=== PATIENT | female | born 1945 | race Caucasian/White ===

== ENCOUNTER 2022-05-16 14:27 | Outpatient (CLI) | payer MEDICARE, OTHER, SELFPAY ==
--- NOTE | ~2022-05-16 | XR_ITS ---
EXAMINATION: XR lumbar spine 2-3V DATE: 05/16/2022 15:21 INDICATION: Chronic low back pain. TECHNIQUE: 3 views of lumbar spine were obtained. COMPARISON: None. FINDINGS: There is 4 degrees levocurvature of lumbar spine. Vertebral body heights are normal. There is mild decreased disc height at L2-L3 and L3-L4. There are endplate osteophytes at most levels. Ther e is multilevel moderate facet joint osteoarthritis. IMPRESSION: 1. Mild lumbar spondylosis. Reviewed, dictated and finalized at location B. IMPRESSION: 1. Mild lumbar spondylosis.
--- NOTE | ~2022-05-16 | XR_ITS ---
EXAMINATION: XR thoracic spine 3V DATE: 05/16/2022 15:21 INDICATION: Back pain. TECHNIQUE: 3 views of thoracic spine were obtained. COMPARISON: Chest CT 05/19/2017 FINDINGS: Bone alignment is normal. Vertebral body heights are normal. There is mildly decreased disc height at multiple levels. There are endplate osteophytes at many levels. There is a 3 cm mass in le ft lung upper lobe. IMPRESSION: 1. 3 cm mass in left lung upper lobe suspicious for primary bronchogenic carcinoma. Noncontrast chest CT is recommended. 2. Mild thoracic spondylosis. Reviewed, dictated and finalized at location B. IMPRESSION: 1. 3 cm mass in left lung upper lobe suspicious for primary bronchogenic carcin everardo. Noncontrast chest CT is recommended. 2. Mild thoracic spondylosis.
--- NOTE | ~2022-05-16 | XR_ITS ---
EXAMINATION: XR chest 2V DATE: 05/16/2022 15:21 INDICATION: Chronic obstructive pulmonary disease. TECHNIQUE: Frontal and lateral views of the chest were obtained. COMPARISON: Chest 2 views 08/12/2014, chest CT 05/19/2017 FINDINGS: There are lucencies in the lungs, consistent with emphysema. There is a 3 cm mass in left u pper lobe. Calcified pulmonary nodules and calcified hilar and mediastinal lymph nodes are consistent with old granulomatous disease. No pleural effusion or pneumothorax. The heart size is normal. There are old healed right rib fractures. IMPRESSION: 1. 3 cm mass in left lung upper lobe suspicious for primary bronchogenic carcinoma. Noncontrast chest CT is recommended. I called this result to Dr. Bashri. Reviewed, dictated and finalized at location B. IMPRESSION: 1. 3 cm mass in left lung upper lobe suspicious for primary bronchogenic carcin everardo. Noncontrast chest CT is recommended. I called this result to Dr. Bashir .
--- NOTE | 2022-05-16 15:22 | ECG_ITS ---
Measurements Intervals [place] Rate: 60 P: 54 MN: 160 QRS: -24 QRSD: 71 T: 57 QT: 440 QTc: 442 Interpretive Statements BASELINE ARTIFACT/POOR QUALITY ECG SINUS RHYTHM ANTEROSEPTAL MYOCARDIAL INFARCTION , O OLD ABNORMAL ECG Electronically Signed On 05-17-2022 14:47:45 CDT by Chito Viveros M.D.
== END 2022-05-16 14:28 | disposition home or self-care (01) ==
LOC: CHSCARD 14:31
PROVIDERS: PCP Family Medicine; Visit Provider Family Medicine
DX: R60.0 Localized edema (principal); M40.15 Other secondary kyphosis, thoracolumbar region; J44.9 Chronic obstructive pulmonary disease, unspecified; M54.50 Low back pain, unspecified; M54.6 Pain in thoracic spine; I10 Essential (primary) hypertension
CPT/HCPCS: 71046; 72072; 72100; 93005

== ENCOUNTER 2022-05-17 10:37 | Outpatient (CLI) | payer MEDICARE, OTHER, SELFPAY ==
--- NOTE | ~2022-05-17 | CT_ITS ---
EXAMINATION:CT diagnostic chest wo con DATE: 05/17/2022 11:17 INDICATION: Mass in lung. TECHNIQUE: Computed tomography (CT) of the chest was performed without intravenous contrast. Automate d exposure control and iterative reconstruction technique were employed. The dose-length product (DLP ) was 143.02 mGy-cm. COMPARISON: Chest 2 views 05/16/2022, chest CT 05/19/2017, CT abdomen 07/23/16 FINDINGS: There is severe emphysema. Calcified pulmonary nodules and calcified hilar and mediastinal lymph nodes are consistent with old granulomatous disease. There is a cluster of centrilobular nodule s in right upper lobe. There is a 7 mm nodule in right upper lobe. There is a 10 mm part solid nodule in superior segment left lower lobe. There is an 8 mm nodule in left upper lobe. There is a 17 mm no dule in left upper lobe. No pleural effusion. The heart size is normal. There are coronary artery johnny cifications. No pericardial effusion. Calcifications in the spleen are consistent with old granulomat ous disease. There is diffuse hepatic steatosis. Partially visualized is a 6.1 cm mass with calcifica tions and small area of fat in right adrenal gland that measured 4.5 cm on 07/23/2016, consistent with a myelolipoma. There are old healed right rib fractures. There is mild thoracic spondylosis. There i s mild chronic height loss of C7 and T3 vertebral bodies. IMPRESSION: 1. 17 mm pulmonary nodule in left lung upper lobe, consistent with primary bronchogenic carcinoma. 2. Multiple other pulmonary nodules measuring up to 10 mm, which are indeterminate for malignancy. Co nsider PET/CT. 3. Severe emphysema. Reviewed, dictated and finalized at location B. IMPRESSION: 1. 17 mm pulmonary nodule in left lung upper lobe, consistent with primary bron chogenic carcinoma. 2. Multiple other pulmonary nodules measuring up to 10 mm, which are indetermin ate for malignancy. Consider PET/CT. 3. Severe emphysema.
== END 2022-05-17 10:38 | disposition home or self-care (01) ==
LOC: CHSIMG 10:39
PROVIDERS: PCP Family Medicine; Visit Provider Family Medicine
DX: R91.8 Other nonspecific abnormal finding of lung field (principal)
CPT/HCPCS: 71250

== ENCOUNTER 2022-05-21 12:58 | Outpatient (CLI) | payer MEDICARE, OTHER, SELFPAY ==
--- NOTE | ~2022-05-21 | DEXA_ITS ---
Bone Density Report Name: JUNG PACKER Age: 76 Sex: Female Ethnicity: White Date of : 1945 Indication: postmenopausal; screening for osteoporosis; height loss; asthma or emphysema; Referring Provider: Domingo Bashir Study: Bone densitometry was performed. Exam Date: May 21, 2022 Accession number: [id number] Bone Density: Region BMD T-score Z-score Classification AP Spine(L1-L4) 1.125 0.7 3.3 Normal Femoral Neck (Left) 0.848 0.0 2.2 Normal Total Hip (Left) 0.983 0.3 2.3 Normal Femoral Neck (Right) 0.822 -0.2 2.0 Normal Total Hip (Right) 0.957 0.1 2.1 Normal Femoral Neck Mean 0.835 -0.1 2.1 Normal Total Hip Mean 0.970 0.2 2.2 Normal World Health Organization criteria for BMD impression classify patients as: Normal (T-score at or above -1.0), Osteopenia (T-score between -1.0 and -2.5), or Osteoporosis (T-score at or below -2.5). 10-year Fracture Risk: FRAX not reported because: All T-scores for Spine Total, Hip Total, Femoral Neck at or above -1.0 Clinical Information Provided by Patient: Has used the following medications: Vitamin D Has the following medical conditions: Asthma or Emphysema Patient maximum height was 59 Menopause Age: 50 No regular weight bearing exercise Drinks caffeinated beverages Onset of menses at age 10 Number of children 3 Impression: The patient has normal bone mass. Discussion: BONE DENSITY IS ABOVE THE MINIMUM DESIRABLE LEVEL AT ALL SKELETAL SITES TESTED. This patient?s bone mineral density is above the minimum desirable level (T-score -1.0 or better) at all sites measured. The patient should follow a healthful lifestyle (good nutrition with adequate calcium and vitamin D, and appropriate weight-bearing exercise). Follow-Up: Consider repeating this study in 5 years or sooner if there is some new clinical indication. Reported by: Dr. Jose Mittal on 05/21/2022 1:43:00 PM. Reviewed, dictated and finalized at location [facility]
--- NOTE | ~2022-05-21 | US_ITS ---
EXAMINATION: US venous doppler [facility] DATE: 05/21/2022 14:39 INDICATION: Lower limb edema. TECHNIQUE: Grayscale ultrasound images without and with compression and Doppler ultrasound images of the bilateral lower extremity veins were obtained. COMPARISON: None. FINDINGS: The visualized portions of right common femoral vein, profunda (deep) femoral vein, femoral vein, pop liteal vein, peroneal veins, posterior tibial veins, and greater saphenous vein outflow are patent. The visualized portions of left common femoral vein, profunda femoral vein, femoral vein, popliteal v ein, peroneal veins, posterior tibial veins, and greater saphenous vein outflow are patent. IMPRESSION: 1. No deep venous thrombosis. Reviewed, dictated and finalized at location A.
== END 2022-05-21 12:59 | disposition home or self-care (01) ==
LOC: CHSIMG 13:04
PROVIDERS: PCP Family Medicine; Visit Provider Family Medicine
DX: R60.0 Localized edema (principal); M40.15 Other secondary kyphosis, thoracolumbar region; J44.9 Chronic obstructive pulmonary disease, unspecified; M54.50 Low back pain, unspecified; Z78.0 Asymptomatic menopausal state
CPT/HCPCS: 77080; 93970

== ENCOUNTER 2022-05-22 13:25 | Outpatient (CLI) | payer MEDICARE, OTHER, SELFPAY ==
[2022-05-22 13:40] VITALS: PULSE 62; O2SAT 91
[2022-05-22 13:44] VITALS: PULSE 71; O2SAT 87
[2022-05-22 13:46] VITALS: PULSE 78; O2SAT 93
--- NOTE | 2022-05-22 13:56 | HOMEO2EVAL ---
Evaluation was performed at [facility] Home Oxygen Evaluation RC: Home Oxygen (O2) Evaluation Start: 05/22/22 13:49 Freq: Status: Active Protocol: RPE Activity Type Activity Date Activity User E-sign Co-sign Detail Recorded Client Recorded Date Recorded By Document 05/22/22 13:40 JUSTIN [id number] 05/22/22 13:56 KAB Document 05/22/22 13:44 KAB [id number] 05/22/22 13:56 KAB Document 05/22/22 13:46 KAB [id number] 05/22/22 13:56 KAB 05/22/22 05/22/22 05/22/22 13:40 13:44 13:46 Home O2 Evaluation Test Phase Resting Exercise Exercise Oxygen Delivery Room Air Room Air Nasal Cannula Oxygen Flow Rate (L/min) 1 Pulse Oximetry (90-100 %) 91 87 L 93 Pulse Rate (60-100 beats/min) 62 71 78 Activity Tolerance Good Good Rate of Perceived Exertion (PE) 11 Fairly light 12 Ambulation Distance (feet) 176 280 Ambulation Distance (meters) 53.64 85.33 Home Oxygen Evaluation Comments Will begin walk walked about pt walked on RA pushing 176 feet on ra. approx 280 feet wheelchair Spo2 dropped . spo2 to 87. Placed remained 92% pt on o2 @1LPM. and above on 1 liter of o2. Heart rate 78. Tolerated well. plb encouraged . Treatment Charges O2 Evaluation - Outpatient
== END 2022-05-22 13:26 | disposition home or self-care (01) ==
LOC: CHSCARD 13:28
PROVIDERS: PCP Family Medicine; Visit Provider Family Medicine
DX: J43.9 Emphysema, unspecified (principal)
CPT/HCPCS: 94618

== ENCOUNTER 2022-06-20 12:03 | Outpatient (CLI) | payer MEDICARE, OTHER, SELFPAY ==
--- NOTE | ~2022-06-20 | PE_ITS ---
EXAMINATION: PET skull to mid thigh DATE: 06/20/2022 14:02 INDICATION: Other nonspecific abnormal finding of lung field. Lung nodule. TECHNIQUE: Blood glucose level was 125 mg/dL. 10.623 mCi of 18-fluorodeoxyglucose (18-FDG) was admini stered i.v. Low dose computed tomography (CT) images were acquired from the base of the brain to the proximal thighs for attenuation correction and anatomic localization. Automated exposure control was employed. Dose-length product (DLP) was 750 mGy-cm. Positron emission tomography (PET) images were ac quired in the same distribution. COMPARISON: Chest CT 05/17/2022, 05/19/17 FINDINGS: Head/neck: There is increased activity in the glottis without abnormal CT correlate, likely physiolog ic. There are no pathologically enlarged lymph nodes. Chest: There is severe emphysema. Calcified pulmonary nodules and calcified hilar and mediastinal lym ph nodes are consistent with old granulomatous disease. There is a 5 mm nodule in right upper lobe wi thout increased activity. There is a 7 mm part solid nodule in superior segment left lower lobe witho ut increased activity. There are groundglass and airspace opacities in posterior segment left upper l obe with maximum SUV of 1.1. No pleural effusion. The heart size is normal. There are coronary artery calcifications. No pericardial effusion. There are old healed right rib fractures. Abdomen/pelvis/proximal thighs: There is diffuse hepatic steatosis. There are gallstones in the gallb ladder, which is normal in size. Calcifications in the spleen are consistent with old granulomatous d isease. The pancreas and left adrenal gland are normal. There is a 6.0 cm mass in right adrenal gland measuring soft tissue attenuation with calcifications with maximum SUV of 2.9. Calcifications of pantera ateral kidneys are likely vascular. There is a calcified fibroid in the uterus. There is diverticulos is of the colon without evidence of diverticulitis. There are no dilated loops of bowel. The appendix is normal. There are no pathologically enlarged lymph nodes. There is no free intraperitoneal fluid. IMPRESSION: 1. Improved lung findings, probably infection. Noncontrast low-dose chest CT is recommended in 6 [facility] hs. 2. 6.0 cm mass in right adrenal gland with maximum SUV of 2.9 with increase in size from 5.2 cm on , most likely benign. Reviewed, dictated and finalized at location A. IMPRESSION: 1. Improved lung findings, probably infection. Noncontrast low-dose chest CT is recommended in 6 months. 2. 6.0 cm mass in right adrenal gland with maximum SUV of 2.9 with increase in size from 5.2 cm on 07/23/2016, most likely benign.
[2022-06-20 12:33] LABS: Glucose Point of Care 125 mg/dl (65-105)
== END 2022-06-20 12:04 | disposition home or self-care (01) ==
PROVIDERS: PCP Family Medicine; Visit Provider Nurse Practitioner Family
DX: R91.8 Other nonspecific abnormal finding of lung field (principal)
CPT/HCPCS: 78815; A9552

== ENCOUNTER 2022-12-10 12:40 | Outpatient (CLI) | payer MEDICARE, OTHER, SELFPAY ==
--- NOTE | ~2022-12-10 | CT_ITS ---
EXAMINATION:CT diagnostic chest wo con DATE: 12/10/2022 13:00 INDICATION: Lung nodule. TECHNIQUE: Computed tomography (CT) of the chest was performed without intravenous contrast. Automate d exposure control and iterative reconstruction technique were employed. The dose-length product (DLP ) was 131.61 mGy-cm. COMPARISON: Chest CT 05/17/2022, PET/CT 06/20/2022 FINDINGS: There is severe emphysema. Calcified pulmonary nodules and calcified hilar and mediastinal lymph nodes are consistent with old granulomatous disease. Again seen is a cluster of nodules in righ t upper lobe measuring up to 4 mm. Again seen is a 3 mm nodule in right lower lobe. Again seen is a 4 mm nodule in right lower lobe. No pleural effusion. The heart size is normal. There are coronary art keyla calcifications. No pericardial effusion. There is a 6.0 x 4.8 cm mass with calcifications in righ t adrenal gland, increased from 4.9 x 4.4 cm on 07/23/16. There are old healed right rib fractures. Th ere are chronic compression fractures of C7 and T3. IMPRESSION: 1. Interval resolution of the left upper lobe pulmonary nodule. Stable small residual pulmonary nodul es are likely benign. 2. 6.0 x 4.8 cm mass in right adrenal gland, increased from 4.9 x 4.4 cm on 07/23/16. The slow change suggests this finding is most likely benign. 3. Severe emphysema. Reviewed, dictated and finalized at location A. NSTRUCTIVE DENTIST IMPRESSION: 1. Interval resolution of the left upper lobe pulmonary nodule. Stable small re sidual pulmonary nodules are likely benign. 2. 6.0 x 4.8 cm mass in right adrenal gland, increased from 4.9 x 4.4 cm on 07/02 02/13. The slow change suggests this finding is most likely benign. 3. Severe emphysema.
== END 2022-12-10 12:41 | disposition home or self-care (01) ==
LOC: CHSIMG 12:42
PROVIDERS: PCP Family Medicine; Visit Provider Nurse Practitioner Family
DX: R91.8 Other nonspecific abnormal finding of lung field (principal); E27.9 Disorder of adrenal gland, unspecified; J43.9 Emphysema, unspecified
CPT/HCPCS: 71250

== ENCOUNTER 2023-12-10 14:23 | Outpatient (CLI) | payer MEDICARE, OTHER, SELFPAY ==
--- NOTE | ~2023-12-10 | XR_ITS ---
EXAM: XR lumbar spine 2-3V DATE: 12/10/2023 14:56 HISTORY: low back pain FOR A LONG TIME/NO TRAUMA . COMPARISON: 05/16/2022. FINDINGS: Mild lumbar scoliosis. 5 nonrib-bearing lumbar-type vertebral bodies. Pedicles intact. Nor mal vertebral body alignment. Vertebral body heights preserved. Multilevel mild disc space narrowing and moderate marginal osteophytosis. Multilevel moderate facet hypertrophy and sclerosis. Extensive a therosclerotic calcification of the aorta, with aneurysmal dilatation up to 3.5 cm. No fracture or di slocation. IMPRESSION: Osteopenia. Multilevel moderate degenerative disc disease and facet arthropathy. 3.5 cm a bdominal aortic aneurysm, recommend ultrasound of the aorta for further evaluation. Reviewed, dictated and finalized at location K. T CLIPPER IMPRESSION: Osteopenia. Multilevel moderate degenerative disc disease and facet arthropathy. 3.5 cm abdominal aortic aneurysm, recommend ultrasound of the aor ta for further evaluation.
== END 2023-12-10 14:24 | disposition home or self-care (01) ==
LOC: CHSIMG 14:27
PROVIDERS: PCP Family Medicine; Visit Provider Family Medicine
DX: M54.50 Low back pain, unspecified (principal); M85.88 Other specified disorders of bone density and structure, other site; M51.36 Other intervertebral disc degeneration, lumbar region; I71.40 Abdominal aortic aneurysm, without rupture, unspecified
CPT/HCPCS: 72100

== ENCOUNTER 2023-12-17 10:25 | Outpatient (CLI) | payer MEDICARE, OTHER, SELFPAY ==
--- NOTE | ~2023-12-17 | US_ITS ---
EXAMINATION: US aorta DATE: 12/17/2023 11:19 INDICATION: Enlarged aorta. TECHNIQUE: Grayscale, color Doppler, and pulsed Doppler images of the aorta and common iliac arteries were obtained. COMPARISON: Ultrasound 07/12/2016, PET CT 06/20/2022 FINDINGS: The aorta is normal in caliber and demonstrates atherosclerosis.. The common iliac arteries are not w ell visualized. IMPRESSION: 1. No abdominal aortic aneurysm. Reviewed, dictated and finalized at location E. MANAGER
== END 2023-12-17 10:26 | disposition home or self-care (01) ==
PROVIDERS: PCP Family Medicine; Visit Provider Family Medicine
DX: I77.810 Thoracic aortic ectasia (principal)
CPT/HCPCS: 76775

== ENCOUNTER 2023-12-18 10:35 | Outpatient (CLI) | payer MEDICARE, OTHER, SELFPAY ==
--- NOTE | ~2023-12-18 | MR_ITS ---
EXAMINATION: MR lumbar spine wo con DATE: 12/18/2023 12:11 INDICATION: Low back pain. TECHNIQUE: Magnetic resonance imaging (MRI) of the lumbar spine was performed without intravenous con trast. Sequences included sagittal T2-weighted FSE, sagittal T2-weighted FS FSE, sagittal T1-weighted FSE, and axial T2-weighted FSE. COMPARISON: Lumbar spine radiographs 12/10/23, chest CT 12/18/23, PET/CT 06/20/22 FINDINGS: There is 4 degrees levocurvature of lumbar spine. There is mild chronic anterior wedging of L1 vertebral body. There are Schmorl's nodes at multiple levels. There is moderately decreased disc height at L2-L3 and mildly decreased disc height at L3-L4. The distal spinal cord signal intensity is normal. The conus medullaris is at T12-L1. There is a 7.4 cm mass of right adrenal gland that contai ns macroscopic fat by CT, consistent with a myelolipoma. The following disc levels are specifically d iscussed: L1-L2: The disc is bulging. There is severe bilateral facet joint osteoarthritis. There is mild bilat eral neural foraminal stenosis. There is mild central canal stenosis. L2-L3: The disc is bulging. There is severe bilateral facet joint osteoarthritis. There is mild bilat eral neural foraminal stenosis. There is mild central canal stenosis. L3-L4: The disc is bulging. There is severe bilateral facet joint osteoarthritis. There is mild bilat eral neural foraminal stenosis. There is mild central canal stenosis. L4-L5: The disc is bulging. There is severe bilateral facet joint osteoarthritis. There is mild bilat eral neural foraminal stenosis. There is mild central canal stenosis. L5-S1: The disc does not extend beyond the endplate margin. There is severe bilateral facet joint ost eoarthritis. There is no neural foraminal stenosis. There is no central canal stenosis. IMPRESSION: 1. Moderate lumbar spondylosis. 2. 7.4 cm right adrenal myelolipoma. Reviewed, dictated and finalized at location E. ER CHAIN OFFBEARER
--- NOTE | ~2023-12-18 | CT_ITS ---
EXAMINATION:CT diagnostic chest wo con DATE: 12/18/2023 12:11 INDICATION: Lung nodules. TECHNIQUE: Computed tomography (CT) of the chest was performed without intravenous contrast. Automate d exposure control and iterative reconstruction technique were employed. The dose-length product (DLP ) was 231.56 mGy-cm. COMPARISON: Chest CT 12/10/2022, 05/17/2022 FINDINGS: There is severe emphysema. There is mild atelectasis bilaterally. Calcified pulmonary nodul es and calcified hilar and mediastinal lymph nodes are consistent with old granulomatous disease. The re are a few chronic nodules in the lungs measuring up to 4 mm, likely benign. No pleural effusion. T here is calcified atherosclerosis of the aorta and many of the other arteries. The heart size is norm al. No pericardial effusion. There are coronary artery calcifications. Calcifications in the liver an d spleen are consistent with old granulomatous disease. There is a 7.2 cm mass in right adrenal gland containing macroscopic fat, consistent with a myelolipoma. There is mild thoracic spondylosis. There is mild chronic anterior wedging of multiple vertebral bodies. IMPRESSION: 1. Chronic small pulmonary nodules, likely benign. 2. Severe emphysema. Reviewed, dictated and finalized at location E. EYOR HELPER ROD
== END 2023-12-18 10:36 | disposition home or self-care (01) ==
LOC: CHSIMG 10:36
PROVIDERS: PCP Family Medicine; Visit Provider Family Medicine
DX: R91.8 Other nonspecific abnormal finding of lung field (principal); M54.50 Low back pain, unspecified; J43.9 Emphysema, unspecified; M43.06 Spondylolysis, lumbar region; D17.79 Benign lipomatous neoplasm of other sites
CPT/HCPCS: 71250; 72148

== ENCOUNTER 2024-02-12 14:26 | Outpatient (CLI) | payer MEDICARE, OTHER, SELFPAY ==
--- NOTE | ~2024-02-12 | XR_ITS ---
XR lumbar spine 2-3V 02/12/2024 15:29 Indication: Low back pain Procedure: 3 views lumbar spine Comparison: 12/10/2023 Findings: There is mild levocurvature of the thoracolumbar spine. There is disc narrowing at L1-2 thr ough L4-5. There is multilevel facet hypertrophy. No acute fracture or traumatic malalignment. There is atherosclerosis and aneurysmal dilatation of the aorta measuring up to 3.3 cm. No acute fracture o r traumatic malalignment. There are coarse amorphous calcifications in the pelvis, likely uterine fib roids. There is renal artery atherosclerosis. Impression: 1: Severe lumbar spondylosis with levoscoliosis. 2: Abdominal aortic aneurysm measuring 3.3 cm. Reviewed, dictated and finalized at location A. Impression: 1: Severe lumbar spondylosis with levoscoliosis. 2: Abdominal aortic aneurysm measuring 3.3 cm.
== END 2024-02-12 14:27 | disposition home or self-care (01) ==
LOC: CHSIMG 14:29
PROVIDERS: PCP Family Medicine; Visit Provider Family Medicine
DX: M54.50 Low back pain, unspecified (principal); M43.06 Spondylolysis, lumbar region; M41.86 Other forms of scoliosis, lumbar region; I71.40 Abdominal aortic aneurysm, without rupture, unspecified
CPT/HCPCS: 72100

== ENCOUNTER 2024-03-04 14:43 | Outpatient (RCR) | payer MEDICARE, OTHER, SELFPAY ==
--- NOTE | 2024-03-04 15:55 | OPREHPOC ---
Outpatient Therapy Plan of Care This is a Multidisciplinary Plan of Care that may contain components documented by all disciplines (PT, OT, and ST.) PT Problem 1 PT Problem #1 Knowledge Deficit PT Goal 1 Goal 1. independent and compliant with HEP Target Visit 4 PT Problem 2 PT Problem #2 Pain PT Goal 1 Goal 1. patient to report pain at worst no more than 6/ 10 in the lower back Target Visit 8 PT Problem 3 PT Problem #3 Impaired Strength PT Goal 1 Goal 1. improve core strength to 3+/5 or better 2. improve bilateral hip strength to 4+/5 or better Target Visit 8 PT Problem 4 PT Problem #4 Impaired Functional Mobil PT Goal 1 Goal 1. tinetti to display moderate fall risk or less 2. patient to ambulate 6 minutes with WW and no sitting rest 3. oswestry to display less than 50% functional deficits 4. patient to perform standing activities at home for 15 minutes without sitting rest or increased lower back pain Target Visit 8
--- NOTE | 2024-03-04 15:55 | PTOPEVAL1 ---
Assessment and note entered by JT File, PT Evaluation Information Assessment Status Evaluation Diagnosis low back pain Onset 02/27/24 Subjective Information patient reports she has had pain in the lower back for a long time. she reports she has a lot of pain down the L LE from the lower back. she reports she has increased pain and symptoms with standing and walking. she reports she feels best when sitting and laying down. she reports her xrays showed arthritis in the lower and upper back , and 4 bulging discs in her lower back. she reports she does tolerate standing or walking much due to her respiratory issues (2L supplemental O2 all the time) and due to her lower back issues. she reports she has never done PT in the past. she reports she was given narcotics for her pain which she is currently taking. she reports they do help. patient reports she would like to get rid of her pain. Reported Pain Level Pain Score 0: Self Report Assessment PT Clinical Summary mrs. burks is a pleasant 78 yo woman who presents to skilled PT services for evaluation and treatment of lower back pain. she displays weakness of the core, weakness hips, decreased lumbar mobility, poor posture, and poor activity tolerance. she is complicated by COPD and poor endurance as she is on 2L of supplemental O2. she would benefit from continued skilled PT to address her objective/functional deficits to improve her quality of life and functional activity performance. Plan of Care Interventions Electrical Stimulation,Gait Training,Hot Pack/Cold Pack,Manual Therapy,Neuro Re-education,Patient/ Caregiver Educati,Therapeutic Activities, Therapeutic Exercise PT Services Indicated Yes Treatment Frequency and 2x weekly for 8 visits Duration These treatments will address the objective and functional deficits as defined above. The patient will be advanced safely and appropriately in order for the patient to progress towards his/her prior level of function. Additional exercises will be introduced and as well as a comprehensive home exercise program upon discharge, if needed, ?to ensure carryover of functional gains achieved in the clinic. This treatment plan has been reviewed and agreement upon by the patient.
--- NOTE | 2024-03-10 09:34 | PCPTNOTE ---
patient called and cancelled therapy on 03/09/24 for an unknown reason.
--- NOTE | 2024-03-18 15:09 | PCPTNOTE ---
Patient cancelled session. She reports her spasms are too bad today.
--- NOTE | 2024-03-24 17:38 | PCPTNOTE ---
patient called yesterday and reports she does not feel therapy is helping. she reports she would like to be DC'd.
== END 2024-03-16 20:00 | disposition home or self-care (01) ==
LOC: CHSPT 14:43
PROVIDERS: PCP Family Medicine; Visit Provider Family Medicine
DX: M54.50 Low back pain, unspecified (principal)
CPT/HCPCS: 97014; 97110; 97140; 97161; G0283

== ENCOUNTER 2024-03-23 14:04 | Emergency (ER) | payer MEDICARE, OTHER, SELFPAY ==
--- NOTE | ~2024-03-23 | XR_ITS ---
XR ankle LT min 3V, XR foot LT 2V 03/23/2024 14:29 Indication: Left ankle and foot pain after trauma Procedure: 4 views left ankle and 3 views left Comparison: No prior studies for comparison. Findings: There are extra-articular fractures of the fourth and fifth proximal phalanges with lateral angulation. Osteopenia. Lisfranc joint intact. Ankle mortise intact. No other fracture. No foreign b odies. Impression: 1: Extra-articular fracture is left fourth and fifth proximal phalanges with lateral angulation. Reviewed, dictated and finalized at location B. Impression: 1: Extra-articular fracture is left fourth and fifth proximal phalanges with la teral angulation. Impression: 1: Extra-articular fracture is left fourth and fifth proximal phalanges with la teral angulation.
[2024-03-23 14:04] VITALS: BP 154/69; PULSE 68; RESP 18; TEMP 37.1; O2SAT 98
[2024-03-23 14:12] VITALS: BP 154/69; PULSE 68; RESP 18; TEMP 37.1; O2SAT 98
--- NOTE | 2024-03-23 14:13 | ED.LOWEXIN ---
HPI - Extremity Injury (Lower) General Chief Complaint: Extremity Injury, Lower Stated Complaint: L FOOT INJURY Time Seen by Provider: 03/23/24 14:12 Source: patient Mode of arrival: ambulatory Limitations: no limitations History of Present Illness HPI Narrative: 78 year old female presents to the Emergency Department complaining of left foot and ankle injury and pain. Patient states she fell last evening. Denies any other injury. Patient has deformity to left 4th toe, which is new. Her primary pain is at 4th toe, but also has some pains in foot and ankle. Denies numbness or tingling. MD complaint: ankle injury and foot injury Onset (ago): day(s) (last night) Injury: Left: ankle, foot and toes Place: home Severity: moderate Exacerbating factors: weight bearing, movement and palpation Context: fall Related Data Home Medications Medication Instructions Recorded Confirmed albuterol sulfate 90 mcg/actuation 1 puff inhalation Q4H PRN Wheezing 06/12/22 03/23/24 aerosol inhaler aspirin 81 mg chewable tablet 81 mg PO DAILY 06/12/22 03/23/24 cholecalciferol (vitamin D3) 50 50 mcg PO DAILY 06/12/22 03/23/24 mcg (2,000 unit) capsule escitalopram oxalate 10 mg tablet 10 mg PO DAILY 06/12/22 03/23/24 famotidine 40 mg tablet 40 mg PO BID 06/12/22 03/23/24 montelukast 10 mg tablet 10 mg PO QHS 06/12/22 03/23/24 rosuvastatin 5 mg tablet 5 mg PO DAILY 06/12/22 03/23/24 metoprolol tartrate 25 mg tablet 50 mg PO BID 06/13/23 03/23/24 amlodipine 10 mg tablet 10 mg PO DAILY 01/09/24 03/23/24 fluticasone fur. 200 mcg-umeclid 1 inh inhalation DAILY 03/23/24 03/23/24 62.5 mcg-vilant 25 mcg inhalat.powder (Trelegy Ellipta) Allergies Allergy/AdvReac Type Severity Reaction Status Date / Time No Known Allergies Allergy Unverified 03/23/24 14:09 Review of Systems Review of Systems: All systems reviewed & are unremarkable except as noted in HPI and below Constitutional: Constitutional: Reports as per HPI Eyes: Eyes: Reports as per HPI ENT: Reports system reviewed and no additional complaints, except as documented Cardiovascular: Cardiovascular: Reports as per HPI Respiratory: Respiratory: Reports as per HPI Gastrointestinal: Gastrointestinal: Reports as per HPI Genitourinary: Genitourinary: Reports no additional female genitourinary complaints Musculoskeletal: Musculoskeletal: Reports no additional musculoskeletal complaints and Reports arthralgias (left 4th toe) Neurologic: Reports system reviewed and no additional complaints, except as documented and Denies numbness PMFSH Past Medical History Medical History Cataract removal 2020 CVA (cerebral vascular accident) Former smoker HTN (hypertension) Hyperlipidemia Proteinuria Surgical History Surgical History H/O tubal ligation Social History Social History Smoking packs per day: 1 Smoking cigarettes per day: 20.0 Years smoked: 50 Smoking pack-years: 50.00 Smoking status: Former smoker Smoking end date: 07/25/16 Alcohol intake: current Alcohol use details: Rarely consumes alcohol. Occupation/Education: retired Exam Const: General: healthy appearing Nutritional Appearance: well nourished Orientation/consciousness: patient oriented x3 Limitations: no limitations HENMT: Head: normal to inspection Ears: external ears normal Face/Nose/Sinus: Normal external nose present Face and sinus: normal facial exam Eyes: Conjunctivae: conjunctivae normal Pupils: Equal, round and reactive pupils present EOM: EOMs intact bilaterally Direct Ophthalmoscopy: no photophobia Neck: Neck: normal visual inspection Chest: Chest palpation & inspection: normal inspection of the chest Resp: Effort & Inspection: normal respiratory effort Cardio: Rate: regular rate Other: peripheral
[2024-03-23 15:26] VITALS: BP 125/58; PULSE 52; RESP 16; TEMP 36.8; O2SAT 99
== END 2024-03-23 15:26 | disposition home or self-care (01) ==
PROVIDERS: Emergency Provider Emergency Medicine; PCP Family Medicine
DX: S93.402A Sprain of unspecified ligament of left ankle, initial encounter (principal); S92.912A Unspecified fracture of left toe(s), initial encounter for closed fracture; T14.90XA Injury, unspecified, initial encounter; I10 Essential (primary) hypertension; Z87.891 Personal history of nicotine dependence; E78.5 Hyperlipidemia, unspecified
CPT/HCPCS: 73610; 73620; 99284

== ENCOUNTER 2024-04-05 08:56 | Outpatient (CLI) | payer MEDICARE, OTHER, SELFPAY ==
--- NOTE | ~2024-04-05 | XR_ITS ---
EXAMINATION: XR foot LT min 3V DATE: 04/05/2024 09:18 INDICATION: Fracture follow-up TECHNIQUE: Dorsoplantar, two oblique and lateral views of the left foot were obtained. COMPARISON: 03/25/2024 and 03/23/2024 FINDINGS: Again seen fractures across the proximal metadiaphyseal regions of the right fourth and fifth proxima l phalanges. The fractures remain ununited with as of yet no discernible productive changes of healin g yet apparent. The fifth proximal phalangeal fracture remains nondisplaced with 30 degrees dorsal an gulation. There is suggestion of a possible subtle lucent nondisplaced fracture line extending to the proximal articular surface. Unchanged 4 mm, nearly one shaft width plantar displacement and 60 degre e dorsal angulation of the fourth proximal phalangeal fracture. No other fractures identified. Mild p olyarticular osteoarthritis at the first metatarsophalangeal and multiple tarsometatarsal and interph alangeal joints. IMPRESSION: 1. No significant change in fractures near the base of the right fourth and fifth proximal phalanges, the latter potentially intra-articular, with no discernible productive changes of healing yet appare nt. Reviewed, dictated and finalized at location A. IMPRESSION: 1. No significant change in fractures near the base of the right fourth and fif th proximal phalanges, the latter potentially intra-articular, with no discerni ble productive changes of healing yet apparent.
== END 2024-04-05 08:57 | disposition home or self-care (01) ==
LOC: CHSIMG 08:58
PROVIDERS: PCP Family Medicine; Visit Provider Orthopaedic Surgery
DX: S92.812A Other fracture of left foot, initial encounter for closed fracture (principal); M79.672 Pain in left foot
CPT/HCPCS: 73630

== ENCOUNTER 2024-04-19 08:57 | Outpatient (CLI) | payer MEDICARE, OTHER, SELFPAY ==
--- NOTE | ~2024-04-19 | XR_ITS ---
XR foot LT min 3V DATE: 04/19/2024 09:21 INDICATION: Follow-up of fourth and fifth digit fractures TECHNIQUE: 4 views COMPARISON: 04/05/2024 left foot FINDINGS: There is no significant interval change in position or alignment at the fractures of the pr oximal phalanges of the fourth and fifth digits since 04/05/2024. There is subtle suggestion of healing productive new bone formation. Diffuse osteopenia. IMPRESSION: Suggestion of subtle healing new bone formation at the fractures of the proximal phalange s of the fourth and fifth digits; no significant change in position or alignment Reviewed, dictated and finalized at location B. IMPRESSION: Suggestion of subtle healing new bone formation at the fractures of the proximal phalanges of the fourth and fifth digits; no significant change i n position or alignment
== END 2024-04-19 08:58 | disposition home or self-care (01) ==
LOC: CHSIMG 08:58
PROVIDERS: PCP Family Medicine; Visit Provider Orthopaedic Surgery
DX: M79.672 Pain in left foot (principal)
CPT/HCPCS: 73630

== ENCOUNTER 2024-07-12 10:26 | Outpatient (CLI) | payer MEDICARE, OTHER, SELFPAY ==
--- NOTE | ~2024-07-12 | XR_ITS ---
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 Comparison: May 16, 2022 FINDINGS: MEDIASTINUM: The cardiac silhouette is slightly enlarged. LUNGS: No infiltrates, effusions or pneumothorax. OTHER: Healing rib fractures are seen in the right hemithorax. No free air under the diaphragm. IMPRESSION: No acute cardiopulmonary pathology. Reviewed, dictated and finalized at location A.
[2024-07-12 10:46] LABS: Basophils Absolute Auto 0.04 K/mm3 (0.00-0.10); Basophils Percent Auto 0.5 % (0.0-1.0); Eosinophils Absolute Auto 0.15 K/mm3 (0.02-0.50); Eosinophils Percent Auto 1.8 % (1.0-6.0); Hematocrit 40.4 % (35.0-42.0); Hemoglobin 12.2 g/dL (11.7-13.8); Immature Granulocyte Absolute 0.05 K/mm3 (0.00-0.00); Immature Granulocyte Percent A 0.6 % (0.0-0.0); Lymphocytes Absolute Auto 0.71 K/mm3 (1.10-4.50); Lymphocytes Percent Auto 8.6 % (18.0-42.0); Mean Corpuscular HGB Conc 30.2 g/dL (32-36); Mean Corpuscular Hemoglobin 30.3 pg (27.0-31.0); Mean Corpuscular Volume 100.2 fL (78.0-102.0); Mean Platelet Volume 9.7 fl (9.2-11.8); Monocytes Absolute Auto 0.54 K/mm3 (0.10-0.90); Monocytes Percent Auto 6.5 % (2.0-11.0); Neutrophils Absolute Auto 6.76 K/mm3 (1.70-7.20); Platelet Count Result 279 K/mm3 (150-420); Red Blood Count 4.03 M/mm3 (4.20-5.40); Red Cell Distribution Width 14.8 % (11.6-14.4); White Blood Count 8.3 K/mm3 (4.8-10.8)
[2024-07-12 12:44] LABS: Alanine Aminotransferase 22 U/L (14-59); Albumin Level 3.8 g/dL (3.4-5.0); Alkaline Phosphatase 96 U/L (46-116); Anion Gap 11 mmol/L (4-12); Aspartate Amino Transferase 18 U/L (15-37); Bilirubin,Total 0.4 mg/dL (0.00-1.00); Blood Urea Nitrogen 16 mg/dL (7-18); Calcium 8.9 mg/dL (8.5-10.1); Carbon Dioxide 31 mmol/L (21-32); Chloride 103 mmol/L (98-108); Estimated Glomerular Filt Rate > 60; Glucose 135 mg/dL (70-99); Osmolality Calculated 303 mOsm/kg (285-295); Potassium 3.9 mmol/L (3.5-5.1); Sodium 145 mmol/L (136-145)
== END 2024-07-12 10:27 | disposition home or self-care (01) ==
PROVIDERS: PCP Family Medicine; Visit Provider Nurse Practitioner Family
DX: J44.9 Chronic obstructive pulmonary disease, unspecified (principal); R06.09 Other forms of dyspnea
CPT/HCPCS: 36415; 71046; 80053; 85025

== ENCOUNTER 2024-11-11 11:50 | Outpatient (CLI) | payer MEDICARE, OTHER, SELFPAY ==
--- NOTE | 2024-11-11 11:57 | ECHO_ITS ---
Patient Info Name: Maureen Woodard Age: 78 years : 1945 Gender: Female Ht: 59 in Wt: 150 lbs BSA: 1.71 m2 HR: 84 bpm BP: 205 / 160 mmHg Heart Rhythm: Sinus Rhythm Technical Quality: Fair Exam Date: 11/11/2024 12:50 PM Exam Location: [facility] Patient Status: Outpatient Admit Date: 11/11/2024 Staff Ordering Physician: Dank Rodgers APRN Clothes Drier Repairer: Jessica Balbuena RDCS Attending Provider: Dank Rodgers APRN Referring Physician: Vishal LAKE; Exam Type: CA echo doppler color flow Study Info Indications R06.09 - Other forms of dyspnea Complete two-dimensional, color flow and Doppler transthoracic echocardiogram is performed. Summary 1. Complete two-dimensional, color flow and Doppler transthoracic echocardiogram is performed. 2. Left ventricular chamber dimension is normal. 3. Left ventricular systolic function is normal, estimated at 60-65%. 4. There is mild concentric increased left ventricular wall thickness. 5. The left ventricular diastolic function is grade I diastolic dysfunction. 6. E/e' 25 is elevated. 7. Left atrial chamber dimension is mildly enlarged. 8. The mitral valve has moderately calcified annulus. 9. There is mild mitral valve stenosis with MVA 1.6 cm2, and mean gradeint at 6 mmHg. 10. There is trace tricuspid valve regurgitation. 11. No pulmonary hypertension, estimated pulmonary arterial systolic pressure is 13 mmHg. 12. There is trace pulmonic regurgitation. 13. There is moderate pericardial effusion, posteriorly and posterolaterally. Trace pericardial effusion on right side and anteriorly. No cardiac tamponade. Left Ventricle E/e' 25 is elevated. Left ventricular chamber dimension is normal. Left ventricular systolic function is normal, estimated at 60-65%. There is mild concentric increased left ventricular wall thickness. The left ventricular diastolic function is grade I diastolic dysfunction. Right Ventricle Right ventricular systolic function is normal and with normal TAPSE 2.1 cm. Right ventricular chamber dimension is normal. Left Atria Left atrial chamber dimension is mildly enlarged. Right Atria Right atrial chamber dimension is normal. Aortic Valve The aortic valve is trileaflet. There is no aortic valve stenosis. There is no aortic valve regurgitation. Pulmonic Valve There is trace pulmonic regurgitation. Mitral Valve The mitral valve has moderately calcified annulus. There is mild mitral valve stenosis with MVA 1.6 cm2, and mean gradeint at 6 mmHg. There is no mitral valve regurgitation. Tricuspid Valve There is trace tricuspid valve regurgitation. No pulmonary hypertension, estimated pulmonary arterial systolic pressure is 13 mmHg. Pericardium/Pleural There is moderate pericardial effusion, posteriorly and posterolaterally. Trace pericardial effusion on right side and anteriorly. No cardiac tamponade. Inferior Vena Cava Normal inferior vena cava with >50% collapse upon inspiration consistent with normal right atrial pressure, 5 mmHg. Aorta The aortic root size at the sinus of Valsalva is normal. Left Ventricular Outflow Tract Name Value Normal LVOT 2D LVOT Diameter 1.8 cm LVOT Doppler LVOT Peak Velocity 167 cm/s LVOT Peak Gradient 11 mmHg LVOT Mean Gradient 6 mmHg LVOT VTI 37 cm LVOT VTI/AV VTI Ratio 0.9 LVOT Stroke Volume 97 ml Pulmonic Valve Name Value Normal PV Doppler PV Peak Velocity 122 cm/s PV Peak Gradient 6 mmHg PV Regurgitation Doppler MT Peak End Diastolic Velocity 155 cm/s Mitral Valve Name Value Normal MV Doppler MV Peak Gradient 18 mmHg MV Mean Gradient 6 mmHg MV Decel Lassen 532 cm/s2 MV PHT 68 ms MV Area (PHT) 3.3 cm2 4.0-5.0 MV Area (Cont Eq VTI) 1.6 cm2 MV Diastolic Function MV E Peak Velocity 124 cm/s MV A Peak Velocity 214 cm/s MV E/A 0.6 MV Decel Time 233 ms Tricuspid Valve Name Value Normal TV Regurgitation Doppler TR Peak Velocity 145 cm/s TR Peak Gradient 8 mmHg Estimated PAP/RSVP RA Pressure 5 mmHg <=5 PA Systolic Pressure 13 mmHg <36 RV Systolic Pressure 13 mmHg <36 Aortic Valve Name Value Normal AV Doppler AV Peak Velocity 198 cm/s AV Peak Gradient 16 mmHg AV Mean Gradient 8 mmHg AV VTI 43 cm AV Area (Cont Eq VTI) 2.3 cm2 >=3.0 AV Area (Cont Eq Rito) 2.2 cm2 AV V1/V2 Ratio 0.85 AV Regurgitation 2D LVOT Area 2.6 cm2 Ventricles Name Value Normal LV Dimensions 2D/MM IVS Diastolic Thickness (2D) 1.1 cm 0.6-1.0 LVID Diastole (2D) 4.5 cm 3.8-5.2 LVIW Diastolic Thickness (2D) 1.0 cm 0.6-0.9 LVID Systole (2D) 2.8 cm 2.2-3.5 LVOT Diameter 1.8 cm LV Mass (2D Cubed) 169.73 g 67.00-162.00 LV Mass Index (2D Cubed) 99 g/m2 43-95 Relative Wall Thickness (2D) 0.45 LV Fractional Shortening/Ejection Fraction 2D/MM LV Fractional Shortening (2D) 38 % 27-45 LV EF (2D Teicholz) 68 % 54-74 LV Diastolic Volume (4C MOD) 59 ml LV EF (4C MOD) 65 % LV Diastolic Volume (2C MOD) 74 ml LV EF (2C MOD) 62 % LV Diastolic Volume (BP MOD) 68 ml 46-106 LV Diastolic Volume Index (BP MOD) 39 ml/m2 29-61 LV Systolic Volume (BP MOD) 24 ml 14-42 LV Systolic Volume Index (BP MOD) 14 ml/m2 8-24 LV EF (BP MOD) 64 % 54-74 LV Diastolic Length (4C) 6.8 cm LV Systolic Length (4C) 6.1 cm LV Stroke Volume (4C MOD) 38 ml Atria Name Value Normal LA Dimensions LA Volume (4C A-L) 69 ml LA Volume (BP A-L) 73 ml RA Dimensions RA Area (4C) 13.0 cm2 <=18.0 Report Signatures
== END 2024-11-11 11:51 | disposition home or self-care (01) ==
PROVIDERS: PCP Family Medicine; Visit Provider Nurse Practitioner Family
DX: R06.09 Other forms of dyspnea (principal); I31.39 Other pericardial effusion (noninflammatory); I05.0 Rheumatic mitral stenosis
CPT/HCPCS: 93306

== ENCOUNTER 2025-01-03 14:16 | Outpatient (CLI) | payer MEDICARE, OTHER, SELFPAY ==
--- NOTE | 2025-01-03 14:24 | ECG_ITS ---
Test Date: 2025-01-03 14:37:44 Measurements Intervals [place] Rate: 54 P: 65 MA: 181 QRS: 60 QRSD: 55 T: 26 QT: 445 QTc: 425 Interpretive Statements SINUS BRADYCARDIA LOW QRS VOLTAGE IN PRECORDIAL LEADS ANTEROSEPTAL MYOCARDIAL INFARCTION , PROBABLY OL BASELINE ARTIFACT- I, II, III, AVR, AVL, AVF, V1-V6 ABNORMAL ECG No previous ECG available for comparison Electronically Signed On 01-03-2025 14:37:18 WORD PROCESSOR TECHNICIAN by Hasmukh Shore D.O.
--- OUTSIDE RECORDS SUMMARY | 2025-01-03 15:11 | XMS_ITS | Clinical Summary ---
Author Organization [facility] Address [address] [place] [address]. [place], [place] [id number] [place] [id number] Care Team Providers Care Hot Bread Baker Name Role Phone Domingo Bashir MD Primary Care Provider [phone] Kuldeep Curry MD Unavailable Allergies No known active allergies Medications fluticasone 110 MCG/ACT inhaler Inhale 1 puff into the lungs 2 (two) times daily. Active rosuvastatin (CRESTOR) 5 MG tablet Take 5 mg by mouth daily. Active metoprolol tartrate 25 MG tablet Take by mouth 2 (two) times daily. Active NIFEdipine 30 MG 24 hr tablet Take 30 mg by mouth daily. Active NIFEdipine 90 MG tablet Take 90 mg by mouth daily. Active aspirin EC 81 MG EC tablet Take 81 mg by mouth daily. Active varenicline 0.5 MG tablet Take 0.5 mg by mouth 2 (two) times daily. Active albuterol sulfate HFA (PROAIR HFA) 108 (90 BASE) MCG/ACT inhaler Inhale 2 puffs into the lungs every 6 (six) hours as needed for Wheezing. 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 , right Hypertension Current smoker Acquired kyphosis CVA (cerebral vascular accident) ([facility]/HC C) GERD (gastroesophageal reflux disease) Family History Medical History Relation Comments Heart Attack Brother Heart Attack Maternal Grandmother Heart Attack Mother Aneurysm Sister Relation Status Comments Brother Father Maternal Grandfather Maternal Grandmother Mother Paternal Grandfather Paternal Grandmother Sister Social History Tobacco Use Types Packs/Day Years Used Date Smoking Tobacco: Former Cigarettes Smokeless Tobacco: Never Alcohol Use Standard Drinks/Week Comments No 0 (1 standard drink = 0.6 oz pur e alcohol) Comments Unknown Sex and Gender Information Value Date Recorded Sex Assigned at Not on file Legal Sex Female 9:28 AM CDT Gender Identity Not on file Sexual Orientation Not on file Occupation Industry Job Start Date Job End Date retired Not on file Not on file Not on file Last Filed Vital Signs Vital Sign Reading Time Taken Comments Blood Pressure 127/48 08/06/2016 12:03 PM CDT Pulse 57 08/06/2016 12:01 PM CDT Temperature - - Respiratory Rate 16 08/06/2016 12:01 PM CDT Oxygen Saturation - - Inhaled Oxygen Concentration - - Weight 48.4 kg (106 lb 9.6 oz) 08/06/2016 12:01 PM CDT Height 149.9 cm (4' 11 ) 08/06/2016 12:01 PM CDT Body Mass Index 21.53 08/06/2016 12:01 PM CDT Plan of Treatment Health Maintenance Due Date Last Done Comments ASCVD LDL 1945 ASCVD Statin 1945 Pneumococcal Vaccine: 65+ Ye ars (1 of 2 - PCV) 1949 DTaP, Tdap and Td Vaccines ( 1 - Tdap) 1962 Zoster Vaccines (1 of 2) 1993 Annual Medicare Wellness Visit 2008 Dexa Scan (General) 2008 RSV Immunization or 60+ Years (1 - 1-dose 75+ series) 2018 COVID-19 Vaccine (2023-2 5 season) 2024 Influenza Adult (#1) 2024 Meningococcal B Vaccine Aged Out No l onger eligible based on patient's age to complete this topic Meningococcal Vaccine Aged Out No bailey bob eligible based on patient's age to complete this topic RSV Immunizations Under 20 Months Aged Out No longer eligible based on patient's age to complete this topic Insurance [facility] MEDICARE Care Teams Hot Bread Baker Relationship Specialty Start Date End Date Domingo Bashir MD [address] [place] [address] PCP - General FAMILY PRACTICE 07/26/16 Kuldeep Curry MD [address] [place] [address] INTERNAL MEDICINE 07/26/16
== END 2025-01-03 14:17 | disposition home or self-care (01) ==
LOC: CHSCARD 14:18
PROVIDERS: PCP Family Medicine; Visit Provider Internal Medicine Cardiovascular Disease
DX: I31.39 Other pericardial effusion (noninflammatory) (principal); R00.1 Bradycardia, unspecified; I21.9 Acute myocardial infarction, unspecified; R94.31 Abnormal electrocardiogram [ECG] [EKG]
CPT/HCPCS: 93005

== ENCOUNTER 2025-01-11 11:52 | Outpatient (CLI) | payer MEDICARE, OTHER, SELFPAY ==
--- NOTE | 2025-01-11 11:57 | ECHO_ITS ---
Patient Info Name: Maureen Woodard Age: 79 years : 1945 Gender: Female Ht: 58 in Wt: 135 lbs BSA: 1.61 m2 HR: 87 bpm BP: 134 / 66 mmHg Heart Rhythm: Sinus Rhythm Technical Quality: Good Exam Date: 01/11/2025 12:12 PM Exam Location: Echo Lab Patient Status: Outpatient Admit Date: 01/11/2025 Staff Ordering Physician: Hasmukh Shore DO Needle Straightener: Jessica Balbuena RDCS Attending Provider: Hasmukh Shore DO Referring Physician: Silviano LUIS; Exam Type: CA echo doppler color flow Study Info Indications - H/O pericardial effusion Complete two-dimensional, color flow and Doppler transthoracic echocardiogram is performed. Summary 1. Complete two-dimensional, color flow and Doppler transthoracic echocardiogram is performed. 2. Left ventricular chamber dimension is normal. 3. Left ventricular systolic function is normal, estimated at 60-65%. 4. The left ventricular diastolic function is grade I diastolic dysfunction. 5. E/e' 29 is significantly elevated. 6. Left atrial chamber dimension is mildly enlarged. 7. The aortic valve is not well visualized. Cannot determine number of aortic valve leaflets. 8. There is mild aortic valve stenosis based on a peak velocity of 165 cm/s, mean gradient of 6 mmHg, and aortic valve area of 1.7 cm2. 9. There is mild aortic valve sclerosis. 10. The mitral valve has mild calcified leaflets and moderate calcified annulus. 11. There is mild mitral valve stenosis with mean gradient of 4 mmHg. 12. There is trace mitral valve regurgitation. 13. There is trace tricuspid valve regurgitation. 14. Mild pulmonary hypertension, estimated pulmonary arterial systolic pressure is 45 mmHg. 15. There is trace pulmonic regurgitation. 16. There is small circumferential pericardial effusion with small to moderate amount in posterior location. Left Ventricle E/e' 29 is significantly elevated. Left ventricular chamber dimension is normal. Left ventricular systolic function is normal, estimated at 60-65%. The left ventricular diastolic function is grade I diastolic dysfunction. Right Ventricle Right ventricular chamber dimension is normal. Right ventricular systolic function is normal. Left Atria Left atrial chamber dimension is mildly enlarged. Right Atria Right atrial chamber dimension is normal. Aortic Valve The aortic valve is not well visualized. Cannot determine number of aortic valve leaflets. There is mild aortic valve stenosis based on a peak velocity of 165 cm/s, mean gradient of 6 mmHg, and aortic valve area of 1.7 cm2. There is mild aortic valve sclerosis. There is no aortic valve regurgitation. Pulmonic Valve There is trace pulmonic regurgitation. Mitral Valve The mitral valve has mild calcified leaflets and moderate calcified annulus. There is mild mitral valve stenosis with mean gradient of 4 mmHg. There is trace mitral valve regurgitation. Tricuspid Valve There is trace tricuspid valve regurgitation. Mild pulmonary hypertension, estimated pulmonary arterial systolic pressure is 45 mmHg. Pericardium/Pleural There is small circumferential pericardial effusion with small to moderate amount in posterior location. No cardiac tamponade. Inferior Vena Cava Normal inferior vena cava with >50% collapse upon inspiration consistent with normal right atrial pressure, 5 mmHg. Aorta The aortic root size at the sinus of Valsalva is normal. Left Ventricular Outflow Tract Name Value Normal LVOT 2D LVOT Diameter 1.8 cm LVOT Doppler LVOT Peak Velocity 134 cm/s LVOT Peak Gradient 5 mmHg LVOT Mean Gradient 3 mmHg LVOT VTI 30 cm LVOT VTI/AV VTI Ratio 0.7 LVOT Stroke Volume 74 ml Pulmonic Valve Name Value Normal PV Doppler PV Peak Velocity 96 cm/s PV Peak Gradient 4 mmHg PV Regurgitation Doppler TX Peak End Diastolic Velocity 90 cm/s Mitral Valve Name Value Normal MV Doppler MV Peak Gradient 19 mmHg MV Mean Gradient 4 mmHg MV Decel Atkinson 292 cm/s2 MV PHT 152 ms MV Area (PHT) 1.4 cm2 4.0-5.0 MV Area (Cont Eq VTI) 1.0 cm2 MV Diastolic Function MV E Peak Velocity 107 cm/s MV A Peak Velocity 175 cm/s MV E/A 0.6 MV Decel Time 541 ms Tricuspid Valve Name Value Normal TV Regurgitation Doppler TR Peak Velocity 317 cm/s TR Peak Gradient 40 mmHg Estimated PAP/RSVP RA Pressure 5 mmHg <=5 PA Systolic Pressure 45 mmHg <36 RV Systolic Pressure 45 mmHg <36 Aortic Valve Name Value Normal AV Doppler AV Peak Velocity 165 cm/s AV Peak Gradient 11 mmHg AV Mean Gradient 6 mmHg AV VTI 41 cm AV Area (Cont Eq VTI) 1.7 cm2 >=3.0 AV Area (Cont Eq Rito) 0.1 cm2 AV V1/V2 Ratio 0.82 AV Regurgitation 2D LVOT Area 2.5 cm2 Ventricles Name Value Normal LV Dimensions 2D/MM IVS Diastolic Thickness (2D) 1.1 cm 0.6-1.0 LVID Diastole (2D) 3.6 cm 3.8-5.2 LVIW Diastolic Thickness (2D) 1.0 cm 0.6-0.9 LVID Systole (2D) 2.3 cm 2.2-3.5 LVOT Diameter 1.8 cm LV Mass (2D Cubed) 115.00 g 67.00-162.00 LV Mass Index (2D Cubed) 72 g/m2 43-95 Relative Wall Thickness (2D) 0.58 LV Fractional Shortening/Ejection Fraction 2D/MM LV Fractional Shortening (2D) 36 % 27-45 LV EF (2D Teicholz) 66 % 54-74 LV Diastolic Volume (4C MOD) 82 ml LV EF (4C MOD) 62 % LV Diastolic Volume (2C MOD) 95 ml LV EF (2C MOD) 69 % LV Diastolic Volume (BP MOD) 89 ml 46-106 LV Diastolic Volume Index (BP MOD) 55 ml/m2 29-61 LV Systolic Volume (BP MOD) 31 ml 14-42 LV Systolic Volume Index (BP MOD) 19 ml/m2 8-24 LV EF (BP MOD) 66 % 54-74 LV Diastolic Length (4C) 7.3 cm LV Systolic Length (4C) 6.3 cm LV Stroke Volume (4C MOD) 51 ml Atria Name Value Normal LA Dimensions LA Volume (4C A-L) 44 ml LA Volume (BP A-L) 50 ml Report Signatures
--- OUTSIDE RECORDS SUMMARY | 2025-01-11 13:03 | XMS_ITS | Clinical Summary ---
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 MEDICARE Care Teams Customer Experience Strategist Relationship Specialty Start Date End Date Domingo Bashir MD [address] [place] [address] PCP - General FAMILY PRACTICE 07/26/16 Kuldeep Curry MD [address] [place] [address] INTERNAL MEDICINE 07/26/16
== END 2025-01-11 11:53 | disposition home or self-care (01) ==
LOC: CHSIMG 11:54
PROVIDERS: PCP Family Medicine; Visit Provider Internal Medicine Cardiovascular Disease
DX: I31.39 Other pericardial effusion (noninflammatory) (principal); I27.20 Pulmonary hypertension, unspecified; I05.0 Rheumatic mitral stenosis; I50.30 Unspecified diastolic (congestive) heart failure
CPT/HCPCS: 93306